=== PATIENT | male | born 1955 | race Caucasian/White ===

== ENCOUNTER 2020-10-28 08:59 | Emergency (ER) | payer MEDICARE ==
[2020-10-28] MEDS ORDERED: Acetaminophen 500 MG Tab PO ONE (11:53)
[2020-10-28] MEDS ORDERED: predniSONE 20 MG Tab PO ONE (11:56)
[2020-10-28] MEDS ORDERED: Sodium Chloride 0.9% 10 ML Syringe FLUSH PRN (11:57)
[2020-10-28] MEDS ORDERED: Sodium Chloride 0.9% 1,000 ML IV ONE (12:15)
--- NOTE | 2020-10-28 12:40 | CR ---
DATE OF SERVICE: 10/28/2020 CLINICAL DATA: Shortness of breath AP chest: No priors. The patient has taken a poor inspiration. The heart is mildly enlarged. There is minimal pleural thickening in both hemithoraces. The lungs are clear. No pneumothorax. No pleural effusions. Thank you for allowing us to participate in the care of your patient. KIM
--- NOTE | 2020-10-28 13:51 | EDM.PDOC ---
ED HPI GENERAL MEDICAL PROBLEM - General Chief Complaint: Respiratory Problem Stated Complaint: COVID POSITIVE Time Seen by Provider: 10/28/20 11:50 Source of Information: Reports: Patient History Limitations: Reports: No Limitations - History of Present Illness INITIAL COMMENTS - FREE TEXT/NARRATIVE: 65 year old male with PMH HTN presents to ED with positive COVID (october 18 in [place]) c/o increased cough and dyspnea with exertion. ED in [place] prescribed patient 40 mg prednisone x 7 days, albuterol inhaler 1 puff every 6 hours. He feels that the inhaler helps with his exertional SOB and cough. He is a tanker truck driver. Chest Pain Score (Numeric/FACES): 6 - Related Data Allergies Allergy/AdvReac Type Severity Reaction Status Date / Time No Known Allergies Allergy Verified 10/28/20 11:11 Home Meds: Home Meds Albuterol Sulfate [Albuterol Sulfate Hfa] 8.5 gm IH Q6HR 1 Days #1 hfa.aer.ad 10/28/20 [Rx] Ascorbate Calcium [Vitamin C] 500 mg PO DAILY 10/28/20 [History] Aspirin 81 mg PO DAILY 10/28/20 [History] Cetirizine [ZyrTEC] 10 mg PO DAILY 10/28/20 [History] Cholecalciferol (Vitamin D3) [Vitamin D] 1,000 unit PO DAILY 10/28/20 [History] Naproxen Sodium [Aleve] 440 mg PO DAILY 10/28/20 [History] Zinc 50 mg PO DAILY 10/28/20 [History] allopurinoL [Zyloprim] 100 mg PO BID 10/28/20 [History] lisinopriL [Lisinopril] 15 mg PO DAILY 10/28/20 [History] predniSONE 20 mg PO BID 10/28/20 [History] Past Medical History HEENT History: Reports: Sinusitis Cardiovascular History: Reports: Hypertension Other Respiratory History: Recent Dx bronchitis and COVID-19 Musculoskeletal History: Reports: Gout Endocrine/Metabolic History: Reports: Obesity/BMI 30+ - Infectious Disease History Infectious Disease History: Reports: Novel Coronavirus Social & Family History - Family History Family Medical History: No Pertinent Family History - Tobacco Use Tobacco Use Status *Q: Never Tobacco User Second Hand Smoke Exposure: No - Caffeine Use Caffeine Use: Reports: Coffee, Soda Other Caffeine Use: Drinks very little coffee - Alcohol Use Days Per Week of Alcohol Use: 7 Number of Drinks Per Day: 2 Total Drinks Per Week: 14 - Recreational Drug Use Recreational Drug Use: No ED ROS GENERAL - Review of Systems Review Of Systems: See Below Constitutional: Reports: Chills, Night Sweats HEENT: Reports: No Symptoms Respiratory: Reports: Shortness of Breath, Cough Cardiovascular: Reports: Edema Endocrine: Reports: No Symptoms GI/Abdominal: Reports: No Symptoms : Reports: No Symptoms Musculoskeletal: Reports: No Symptoms Skin: Reports: No Symptoms Neurological: Reports: No Symptoms Psychiatric: Reports: No Symptoms Hematologic/Lymphatic: Reports: No Symptoms Immunologic: Reports: No Symptoms ED EXAM, GENERAL - Physical Exam Exam: See Below Exam Limited By: No Limitations General Appearance: Alert, No Apparent Distress Eye Exam: Bilateral Eye: Normal Inspection, PERRL Ears: Normal External Exam, Hearing Grossly Normal Ear Exam: Bilateral Ear: Auricle Normal Nose: Normal Inspection, No Blood Throat/Mouth: Normal Inspection, Normal Lips, Normal Gums, Normal Oropharynx, Normal Voice, No Airway Compromise Head: Atraumatic, Sinus Tenderness Neck: Non-Tender, Full Range of Motion Respiratory/Chest: No Respiratory Distress, Lungs Clear, Normal Breath Sounds, Decreased Breath Sounds (due to body habitus) Cardiovascular: Normal Peripheral Pulses, Regular Rate, Rhythm, No JVD, No Murmur Peripheral Pulses: 3+: Carotid (L), Carotid (R), Radial (L), Radial (R), Posterior Tibial (L), Posterior Tibial (R), Dorsalis Pedis (L), Dorsalis Pedis (R) GI/Abdominal: Normal Bowel Sounds, Soft, Non-Tender Back Exam: Normal Inspection, Full Range of Motion. No: CVA Tenderness (R), CVA Tenderness (L) Extremities: Normal Inspection, Normal Range of Motion, Non-Tender, Normal Capillary Refill (bilateral, patient states this is normal for him), Pedal Edema Neurological: Alert, Oriented, CN II-XII Intact, Normal Cognition, Normal Gait, Normal Reflexes, No Motor/Sensory Deficits Psychiatric: Normal Affect, Normal Mood Skin Exam: Warm, Dry, Intact, Normal Color, No Rash Lymphatic: No Adenopathy Course - Vital Signs Last Recorded V/S: Last Vital Signs Temp 98 F 10/28/20 12:40 Pulse 70 10/28/20 12:40 Resp 18 04/14/21 12:40 BP 168/90 H 10/28/20 12:40 Pulse Ox 96 10/28/20 12:40 - Orders/Labs/Meds Orders: Active Orders 24 hr Category Date Time Status EKG Documentation Completion [RC] ASDIRECTED Care 10/28/20 11:55 Active CULTURE BLOOD [BC] Stat Lab 10/28/20 12:09 Received Sodium Chloride 0.9% [Saline Flush] Med 10/28/20 11:57 Active 10 ml FLUSH ASDIRECTED PRN Peripheral IV Insertion Adult [OM.PC] Routine Oth 10/28/20 11:57 Ordered EKG 12 Lead [EK] Routine Ther 10/28/20 11:35 Ordered Medication Orders Sodium Chloride (Sodium Chloride 0.9% 10 Ml Syringe) 10 ml FLUSH ASDIRECTED PRN PRN Reason: Keep Vein Open Labs: Laboratory Tests 10/28/20 10/28/20 10/28/20 Range/Units 11:55 11:55 11:55 WBC 15.1 H (4.0-11.0) K/uL RBC 4.39 L (4.50-6.50) M/uL Hgb 15.5 (13.0-18.0) g/dL Hct 44.2 (40.0-54.0) % MCV 101 H (76-96) fL MCH 35.3 H (27.0-32.0) pg MCHC 35.1 H (31.0-35.0) g/dL RDW 13.4 (11.0-16.0) % Plt Count 354 (150-400) K/uL MPV 9.4 (6.0-10.0) fL Neut % (Auto) 81.5 H (45.0-70.0) % Lymph % (Auto) 13.6 L (20.0-40.0) % Woodward % (Auto) 4.3 (3.0-10.0) % Eos % (Auto) 0.1 L (1.0-5.0) % Baso % (Auto) 0.5 (0.0-0.5) % Neut # (Auto) 12.32 H (2.00-7.50) K/uL Lymph # (Auto) 2.06 (1.50-4.00) K/uL Woodward # (Auto) 0.65 (0.20-0.80) K/uL Eos # (Auto) 0.01 L (0.04-0.40) K/uL Baso # (Auto) 0.07 (0.02-0.10) K/uL D-Dimer, Quantitative (0-400) ng/mL Sodium 138 (136-145) mmol/L Potassium 4.4 (3.5-5.1) mmol/L Chloride 102 (98-107) mmol/L Carbon Dioxide 25.3 (21.0-32.0) mmol/L Anion Gap 15.1 H (5.0-15.0) mmol/L BUN 14 (8-26) mg/dL Creatinine 0.91 (0.70-1.30) mg/dL Est Cr Clr Drug Dosing 83.56 mL/min Estimated GFR (MDRD) > 60 (>60) MLS/MIN BUN/Creatinine Ratio 15.4 (6-25) Glucose 109 H (74-100) mg/dL Lactic Acid 1.3 (0.4-2.0) mmol/L Calcium 8.2 L (8.5-10.1) mg/dL Total Bilirubin 0.6 (0.0-1.0) mg/dL AST 42 H (15-37) U/L ALT 51 (12-78) U/L Alkaline Phosphatase 57 (46-116) U/L B-Natriuretic Peptide 270 H (0-125) pg/mL Total Protein 7.0 (6.4-8.2) g/dL Albumin 3.6 (3.4-5.0) g/dL Globulin 3.4 (2.2-4.2) g/dL Albumin/Globulin Ratio 1.1 (0.8-2.0) Urine Color Urine Appearance (CLEAR) Urine pH (5.0-8.0) Ur Specific Wilson (1.003-1.030) Urine Protein (NEGATIVE) mg/dL Urine Glucose (UA) (NEGATIVE) mg/dL Urine Ketones (NEGATIVE) mg/dL Urine Occult Blood (NEGATIVE) Urine Nitrite (NEGATIVE) Urine Bilirubin (NEGATIVE) Urine Urobilinogen (0.2-1.0) E.U./dL Ur Leukocyte Esterase (NEGATIVE) 04/14/21 04/14/21 Range/Units 12:09 12:25 WBC (4.0-11.0) K/uL RBC (4.50-6.50) M/uL Hgb (13.0-18.0) g/dL Hct (40.0-54.0) % MCV (76-96) fL MCH (27.0-32.0) pg MCHC (31.0-35.0) g/dL RDW (11.0-16.0) % Plt Count (150-400) K/uL MPV (6.0-10.0) fL Neut % (Auto) (45.0-70.0) % Lymph % (Auto) (20.0-40.0) % Woodward % (Auto) (3.0-10.0) % Eos % (Auto) (1.0-5.0) % Baso % (Auto) (0.0-0.5) % Neut # (Auto) (2.00-7.50) K/uL Lymph # (Auto) (1.50-4.00) K/uL Woodward # (Auto) (0.20-0.80) K/uL Eos # (Auto) (0.04-0.40) K/uL Baso # (Auto) (0.02-0.10) K/uL D-Dimer, Quantitative < 100 (0-400) ng/mL Sodium (136-145) mmol/L Potassium (3.5-5.1) mmol/L Chloride (98-107) mmol/L Carbon Dioxide (21.0-32.0) mmol/L Anion Gap (5.0-15.0) mmol/L BUN (8-26) mg/dL Creatinine (0.70-1.30) mg/dL Est Cr Clr Drug Dosing mL/min Estimated GFR (MDRD) (>60) MLS/MIN BUN/Creatinine Ratio (6-25) Glucose (74-100) mg/dL Lactic Acid (0.4-2.0) mmol/L Calcium (8.5-10.1) mg/dL Total Bilirubin (0.0-1.0) mg/dL AST (15-37) U/L ALT (12-78) U/L Alkaline Phosphatase (46-116) U/L B-Natriuretic Peptide (0-125) pg/mL Total Protein (6.4-8.2) g/dL Albumin (3.4-5.0) g/dL Globulin (2.2-4.2) g/dL Albumin/Globulin Ratio (0.8-2.0) Urine Color Yellow Urine Appearance Clear (CLEAR) Urine pH 7.0 (5.0-8.0) Ur Specific Wilson 1.020 (1.003-1.030) Urine Protein Negative (NEGATIVE) mg/dL Urine Glucose (UA) Negative (NEGATIVE) mg/dL Urine Ketones Negative (NEGATIVE) mg/dL Urine Occult Blood Negative (NEGATIVE) Urine Nitrite Negative (NEGATIVE) Urine Bilirubin Negative (NEGATIVE) Urine Urobilinogen 0.2 (0.2-1.0) E.U./dL Ur Leukocyte Esterase Negative (NEGATIVE) Meds: Medications Generic Name Dose Route Start Last Admin Trade Name Freq PRN Reason Stop Dose Admin Sodium Chloride 10 ml 10/28/20 11:57 Sodium Chloride 0.9% 10 Ml Syringe FLUSH ASDIRECTED PRN Keep Vein Open Discontinued Medications Generic Name Dose Route Start Last Admin Trade Name Freq PRN Reason Stop Dose Admin Acetaminophen 1,000 mg 10/28/20 11:53 10/28/20 12:21 Acetaminophen 500 Mg Tab PO 10/28/20 11:54 1,000 mg ONETIME ONE Administration Acetaminophen Confirm 10/28/20 14:07 Acetaminophen 325 Mg Tab Administered 10/28/20 14:08 Dose 6,500 mg .ROUTE .STK-MED ONE Sodium Chloride 1,000 mls @ 999 mls/hr 10/28/20 12:15 10/28/20 12:15 Normal Saline IV 10/28/20 13:15 999 mls/hr .BOLUS ONE Administration Prednisone 20 mg 10/28/20 11:56 10/28/20 12:21 Prednisone 20 Mg Tab PO 10/28/20 11:57 20 mg ONETIME ONE Administration Departure - Departure Time of Disposition: 13:44 Disposition: Home, Self-Care 01 Clinical Impression: COVID-19, Cough - Discharge Information *PRESCRIPTION DRUG MONITORING PROGRAM REVIEWED*: Not Applicable *COPY OF PRESCRIPTION DRUG MONITORING REPORT IN PATIENT DALLIN: Not Applicable Prescriptions: Albuterol Sulfate [Albuterol Sulfate Hfa] 8.5 gm IH Q6HR 1 Days #1 hfa.aer.ad Instructions: COVID-19 Frequently Asked Questions, Cough, Adult, [id number] Referrals: PCP,None [Primary Care Provider] - Forms: ED Department Discharge Additional Instructions: Take 650mg of tylenol every 6 hours to help with fever and chills. Continue to take your aleve as directed. DO NOT take any ibuprofen while you are taking the aleve. Take your prednisone (2 tablets) in the morning with food. Do not refill the prednisone. Refill the inhaler as needed, you may use 1-2 puffs every 4-6 hours as needed for the cough.Increase your fluids. Follow up with your PMD when you return home. Return to ED for any increased or new concerning symptoms. Sepsis Event Note (ED) - Evaluation Sepsis Screening Result: No Definite Risk - Focused Exam Vital Signs: Vital Signs Temp Pulse Resp BP Pulse Ox 10/28/20 12:40 98 F 70 18 168/90 H 96 10/28/20 11:31 71 16 174/90 H 96 10/28/20 11:07 97.6 F 78 18 187/102 H 96 - My Orders Last 24 Hours: My Active Orders 10/28/20 11:35 EKG 12 Lead [EK] Routine 10/28/20 11:55 EKG Documentation Completion [RC] ASDIRECTED 10/28/20 11:57 Sodium Chloride 0.9% [Saline Flush] 10 ml FLUSH ASDIRECTED PRN Peripheral IV Insertion Adult [OM.PC] Routine 10/28/20 12:09 CULTURE BLOOD [BC] Stat - Assessment/Plan Last 24 Hours: My Active Orders 10/28/20 11:35 EKG 12 Lead [EK] Routine 10/28/20 11:55 EKG Documentation Completion [RC] ASDIRECTED 10/28/20 11:57 Sodium Chloride 0.9% [Saline Flush] 10 ml FLUSH ASDIRECTED PRN Peripheral IV Insertion Adult [OM.PC] Routine 10/28/20 12:09 CULTURE BLOOD [BC] Stat
[2020-10-28] MEDS ORDERED: Acetaminophen 325 MG Tab ONE ×2 (14:00→14:07)
== END 2020-10-28 14:20 | disposition home or self-care (01) ==
LOC: LB.ED 08:59
DX: U07.1 COVID-19 (principal); I10 Essential (primary) hypertension; M10.9 Gout, unspecified; E66.9 Obesity, unspecified; Z68.41 Body mass index [BMI] 40.0-44.9, adult; Z79.82 Long term (current) use of aspirin; Z79.899 Other long term (current) drug therapy
CPT/HCPCS: 36415; 71045; 80053; 81003; 83605; 83880; 85025; 85379; 87040; 93005; 99285-25; A9270-GY; J7030; J7512